=== PATIENT | female | born 1960 | race Caucasian/White ===

== ENCOUNTER 2020-08-01 11:18 | Emergency (ER) | payer OTHER ==
[2020-08-01] MEDS ORDERED: diphenhydrAMINE HCL 25 MG CAPSULE (FP) PO ONE (11:41)
[2020-08-01 11:51] VITALS: BP 142/80; PULSE 77; TEMP 98.5; BMI 25.7
== END 2020-08-01 11:52 | disposition home or self-care (01) ==
LOC: FER 11:18
DX: R21 Rash and other nonspecific skin eruption (principal); T78.40XA Allergy, unspecified, initial encounter
CPT/HCPCS: 99284-25

== ENCOUNTER 2020-08-01 21:49 | Emergency (ER) | payer OTHER ==
[2020-08-01 21:54] VITALS: BP 123/78; PULSE 68; TEMP 98.2; BMI 25.7
[2020-08-01] MEDS ORDERED: predniSONE 20 MG TABLET (UD) PO ONE (22:35)
[2020-08-01] MEDS ORDERED: predniSONE 20 MG TABLET (UD) ONE (22:38)
== END 2020-08-01 22:42 | disposition home or self-care (01) ==
LOC: FER 21:49
DX: R21 Rash and other nonspecific skin eruption (principal)
CPT/HCPCS: 87070; 87880; 99284-25; C9803; U0003

== ENCOUNTER 2023-12-01 11:47 | Emergency (ER) | payer OTHER ==
[2023-12-01 11:52] VITALS: RESP 18; TEMP 97.1; BMI 26.9
[2023-12-01 12:36] LABS: BASO % 1.1 % (0-2.0); EOS % 0.7 % (0-4.5); HEMATOCRIT 40.4 % (32.4-45.2); HEMOGLOBIN 13.7 GM/dL (10.7-15.3); LYMPH % 38.1 % (8-40); MCHC 33.9 g/dl (32.0-36.0); MEAN CELL VOLUME 88.4 fl (80-96); MEAN PLT VOLUME 7.1 fl (7.5-11.1); MONO % 8.2 % (3.8-10.2); NEUT % 51.9 % (42.8-82.8); PLATELET COUNT 273 10^3/uL (134-434); RBC 4.57 M/mm3 (3.60-5.2); RDW 13.2 % (11.6-15.6); WHITE BLOOD COUNT 7.8 K/mm3 (4.0-10.0)
[2023-12-01 13:00] LABS: CALCIUM 8.9 mg/dL (8.5-10.1)
[2023-12-01 13:02] LABS: ALBUMIN 3.7 g/dl (3.4-5.0); BLOOD UREA NITROGEN 13.6 mg/dL (7-18); MAGNESIUM 2.2 mg/dL (1.8-2.4)
[2023-12-01 13:04] LABS: CREATININE 0.8 mg/dL (0.55-1.3)
[2023-12-01 13:05] LABS: TOT PROT 6.6 g/dl (6.4-8.2)
[2023-12-01 13:06] LABS: BILIRUBIN,TOTAL 0.5 mg/dL (0.2-1)
[2023-12-01] MEDS ORDERED: ASPIRIN 81 MG CHEWABLE TABLETS ONE (13:53)
[2023-12-01] MEDS: ASPIRIN 81 MG CHEWABLE TABLETS PO ONE (13:58)
[2023-12-01 15:06] VITALS: BP 125/91; PULSE 63
== END 2023-12-01 15:07 | disposition home or self-care (01) ==
LOC: JER 11:47
DX: R07.89 Other chest pain (principal); R00.2 Palpitations; Z20.822 Contact with and (suspected) exposure to COVID-19
CPT/HCPCS: 0241U-QW; 36415; 71046-TC-FY; 80053; 83735; 84484; 85025; 93005; 93010; 99285-25